=== PATIENT | female | born 1960 | race Caucasian/White ===

== ENCOUNTER 2018-06-27 23:49 | Observation (INO) | payer BC ==
[2018-06-27] MEDS ORDERED: Albuterol/Ipratropium NEB.SOL* Albuterol 2.5 MG/Ipratropium 0.5 MG 3 ML ONE (23:59)
[2018-06-28] MEDS ORDERED: Albuterol/Ipratropium NEB.SOL* Albuterol 2.5 MG/Ipratropium 0.5 MG 3 ML INH ONE ×2 (00:01→01:36)
[2018-06-28] MEDS ORDERED: Magnesium Sulfate 2 GM IV* 2 GM/50 ML BAG IVPB ONE (00:04)
[2018-06-28 00:33] LABS: ABS Basophils 0 10^3/ul (0-0.2); ABS Eosinophils 0.3 10^3/ul (0-0.6); ABS Lymphocytes 2.6 10^3/ul (1.0-4.8); ABS Monocytes 0.4 10^3/ul (0-0.8); ABS Neutrophils 3.4 10^3/ul (1.5-7.7); ABS Nucleated RBC 0 10^3/ul; Eosinophil % 3.8 % (0-6); Hematocrit 40 % (35-47); Hemoglobin 13.8 g/dl (12.0-16.0); Lymphocyte % 38.3 % (25-47); Mean Corpuscular HGB Conc 35 g/dl (31-36); Mean Corpuscular Hemoglobin 32 pg (27-31); Mean Corpuscular Volume 91 fL (80-97); Mean Platelet Volume 7.7 um3 (7.4-10.4); Nucleated Red Blood Cells % 0.2; Platelet Count 195 10^3/ul (150-450); Red Blood Count 4.36 10^6/ul (4.00-5.40); Red Cell Distribution Width 13 % (10.5-15); White Blood Count 6.7 10^3/ul (3.5-10.8)
[2018-06-28 00:41] LABS: EGFR Non-African American 91.4 (>60)
--- OUTSIDE RECORDS SUMMARY | 2018-06-28 00:42 | XMS REPORT ---
:1960 External Reference #:[id number] [facility] Address [address] [place] [address] [place] [address] Phone [phone] Care Team Providers Name Role Phone Emmett Torres MD Primary Care Physician Unavailable Payers Type Date Identification Numbers Payment Provider Subscriber Commercial Effective: Policy Number: BS Kelly YEYO Peters 2012 [id number] Expires: 2017 Group Number: [id number] [address] [address] PayID: [id number] YVETTE Flower [id number] Medigap Part B Effective: Policy Number: Maciej Silva 2017 [id number] Ppo Fran Group Number: [id number] [address] [address] PayID: [id number] YVETTE Gomez [id number] Problems Date Description Provider Status Onset: 02/16/2016 Catatonia Neema Lynne M.D. 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 Active Note: and subsequent anoxia resulting in admission to [facility] November 2015 [facility]: 02/10: ; 02/11: ; 02/12: Onset: 03/04/2017 Moderate persistent asthma Emmett Torres M.D.,FACP Active Onset: 03/04/2017 Anaphylaxis Emmett Torres M.D.,FACP Active Note: chocolate, soy, oranges Onset: 10/12/2017 Mixed hyperlipidemia Emmett Torres M.D.,FACP Active Family History Date Family Member(s) Problem(s) Comments : (age 77 Father due to Lung Cancer Years) Father Gout Father Hypertension Onset: (02/21/2017) Mother Hypertension (age 87 Years) Onset: (02/21/2017) Siblings 2 Siblings 2 1 - dec due to lung cancer 1 -has heart murmur First Brother Heart Murmur : (age 65 Second Brother due to Lung Cancer smoker Years) Social History Type Date Description Comments Marital Status Lives With Spouse Lives With Family Occupation Currently Working [employer] Breakfast Cigarette Use Former Cigarette Smoker ETOH Use Consumes 1 glass of wine per White wine with dinner day Smoking Patient is a former smoker Recreational Drug Use Denies Drug Use Daily Caffeine Consumes on average 1 cup of 1/2 regular and 1/2 decaf regular coffee per day Exercise Type/Frequency Exercises sporadically General Hx Text No kids Allergies, Adverse Reactions, Alerts Date Description Reaction Status Severity Comments 02/16/2016 Sulfa Antibiotics rash active Moderate to Severe 02/16/2016 Theophylline Palpitations, active Coughing 02/21/2017 chocolate active severe 02/21/2017 Soybean-containing active Drug Products 02/21/2017 orange active 03/04/2017 Shellfish-derived trouble breathing active Moderate to Products Severe Medications Medication Date Status Form Strength Qnty SIG Indications Ordering Provider Asmanex 06/07/ Active Aerosol 110mcg/Inh 1unit 1 Emmett Penahaljamar 2017 s inhalation Karlos Torres, Metered Doses in evening M.DKelli,FACP Azithromycin 06/07/ Hx Tablets 250mg 6tabs 2 every day Emmett 2018 - for 1 day, Karlos Torres, 06/12/ then 1 Avila,SATISH 2018 every day Sertraline HCL 06/17/ Active Tablets 100mg 90tab 1 by mouth F06.31 Neema 2017 s every day Avila Lynne Epipen 2-Gaurav 03/04/ Active Solution 0.3mg/0.3M 2unit use as Emmett Gonzalez Auto-Inject L jai Torres M.D.,FACP Albuterol / Active Nebulizer (2.5mg/3ML 1 vial via Unknown Sulfate 0000 ) 0.083% nebulizer 4 times daily as needed Proair HFA / Active Aerosol 108(90Base 2 puffs by Unknown 0000 ) mcg/Act mouth every 4 hours as needed Aleve / Active Capsules 220mg 2 by mouth Unknown 0000 twice a day as needed (rare) Fiber Select / Active Chewtabs 2 by mouth Unknown Gummies 0000 every day Amoxicillin/Cl 01/04/ Hx Tablets 875-125mg 14tab by mouth Emmett avulanate 2018 - s twice a day Karlos Torres, Potassium 01/11/ M.D.,FACP 2018 Tamiflu 12/22/ Hx Capsules 75mg 10cap 1 by mouth Emmett 2018 - s twice a day Karlos Torres, 01/04/ x 5 days M.D.,FACP 2018 Epipen 2-Gaurav 03/04/ Hx Solution 0.3mg/0.3M 2unit use as Emmett 2017 - Auto-Inject L s directed Karlos Torres, 03/04/ M.D.,FACP 2017 Sertraline HCL 02/07/ Hx Tablets 50mg 60tab 1 by mouth F06.31 Neema 2017 - s every day Maged, 06/17/ M.D. 2017 Symbicort / Hx 2 puffs po Unknown 0000 - prn 2015 Ibuprofen / Hx Capsules 200mg po as Unknown 0000 - needed 2015 Vital Signs Date Vital Result Comment 06/07/2018 Height 63 inches 5'3" Weight 127.00 lb Heart Rate 87 /min BP Systolic Sitting 138 mmHg BP Diastolic Sitting 80 mmHg Body Temperature 98.2 F O2 % BldC Oximetry 98 % BMI (Body Mass Index) 22.5 kg/m2 02/10/2018 Height 63 inches 5'3" Weight 128.00 lb Heart Rate 88 /min BP Systolic Sitting 118 mmHg BP Diastolic Sitting 68 mmHg Respiratory Rate 16 /min BMI (Body Mass Index) 22.7 kg/m2 01/04/2018 Weight 125.12 lb Heart Rate 76 /min BP Systolic Sitting 120 mmHg BP Diastolic Sitting 66 mmHg Body Temperature 98.2 F O2 % BldC Oximetry 98 % 10/12/2017 Height 62.75 inches 5'2.75" Weight 121.25 lb Heart Rate 60 /min BP Systolic Sitting 130 mmHg LA reg cuff BP Diastolic Sitting 78 mmHg LA reg cuff BMI (Body Mass Index) 21.6 kg/m2 Ejection Fraction 55%-60% echo 03/24/17 06/17/2017 Height 62.75 inches 5'2.75" Weight 121.00 lb Heart Rate 62 /min BP Systolic Sitting 122 mmHg BP Diastolic Sitting 78 mmHg Respiratory Rate 12 /min BMI (Body Mass Index) 21.6 kg/m2 05/19/2017 Height 62.75 inches 5'2.75" Weight 121.00 lb Heart Rate 76 /min BP Systolic Sitting 122 mmHg LA, reg BP Diastolic Sitting 74 mmHg LA, reg BMI (Body Mass Index) 21.6 kg/m2 Ejection Fraction 55% - 60% 03/04/2017 Height 62.75 inches 5'2.75" Weight 120.50 lb Heart Rate 72 /min BP Systolic Sitting 122 mmHg BP Diastolic Sitting 76 mmHg Body Temperature 97.4 F O2 % BldC Oximetry 96 % BMI (Body Mass Index) 21.5 kg/m2 02/21/2017 Height 63 inches 5'3" Weight 122.75 lb with shoes Heart Rate 72 /min BP Systolic Sitting 122 mmHg LA reg cuff BP Diastolic Sitting 82 mmHg LA reg cuff BMI (Body Mass Index) 21.7 kg/m2 02/07/2017 Height 63 inches 5'3" Weight 125.00 lb Heart Rate 64 /min BP Systolic Sitting 106 mmHg BP Diastolic Sitting 60 mmHg Respiratory Rate 14 /min BMI (Body Mass Index) 22.1 kg/m2 08/04/2016 Height 63 inches 5'3" Weight 118.00 lb Heart Rate 68 /min BP Systolic Sitting 120 mmHg BP Diastolic Sitting 80 mmHg Respiratory Rate 14 /min BMI (Body Mass Index) 20.9 kg/m2 05/13/2016 Height 63 inches 5'3" Weight 123.00 lb Heart Rate 68 /min BP Systolic Sitting 110 mmHg BP Diastolic Sitting 70 mmHg Respiratory Rate 17 /min BMI (Body Mass Index) 21.8 kg/m2 02/16/2016 Height 63 inches 5'3" Weight 123.00 lb Heart Rate 88 /min BP Systolic Sitting 116 mmHg BP Diastolic Sitting 82 mmHg Respiratory Rate 16 /min BMI (Body Mass Index) 21.8 kg/m2 Results Test Date Test Result H/L Range Note Sputum Culture & 06/07/2018 Sputum Culture SEE RESULT BELOW 1 Sensitiv Gram Stain Laboratory test 06/07/2018 Sputum Smear <pending> finding Laboratory test 03/16/2018 Magnesium 2.0 mg/dL 1.9-2.7 2, 3 finding Basic Metabolic Panel 03/16/2018 Sodium 141 mmol/L 139-145 2 Potassium 4.4 mmol/L 3.5-5.0 2 Chloride 107 mmol/L 101-111 2 Co2 Carbon Dioxide 29 mmol/L 22-32 2 Anion Gap 5 mmol/L 2-11 2 Glucose 84 mg/dL 70-100 2 Blood Urea Nitrogen 14 mg/dL 6-24 2 Creatinine 0.60 mg/dL 0.51-0.95 2 BUN/Creatinine Ratio 23.3 High 8-20 2 Calcium 9.2 mg/dL 8.6-10.3 2 Egfr Non- 102.3 >60 2 Egfr 131.6 >60 2, 4 Laboratory test 03/16/2018 Erythrocyte Sed Rate 11 mm/Hr 0-30 finding Laboratory test 02/22/2018 Clotest SEE RESULT BELOW 5 finding Laboratory test 02/22/2018 Surgical Interface SEE RESULT BELOW 6 finding Order Laboratory test 10/12/2017 Magnesium 1.9 mg/dL 1.9-2.7 finding Basic Metabolic Panel 10/12/2017 Sodium 139 mmol/L 133-145 Potassium 4.4 mmol/L 3.5-5.0 Chloride 105 mmol/L 101-111 Co2 Carbon Dioxide 26 mmol/L 22-32 Anion Gap 8 mmol/L 2-11 Glucose 95 mg/dL 70-100 Blood Urea Nitrogen 15 mg/dL 6-24 Creatinine 0.62 mg/dL 0.51-0.95 BUN/Creatinine Ratio 24.2 High 8-20 Calcium 9.2 mg/dL 8.6-10.3 Egfr Non- 98.5 >60 Egfr 126.7 >60 7 Lipid Profile (Trig/Chol/HDL) 10/12/2017 Triglycerides 59 mg/dL 8 Cholesterol 242 mg/dL 9 HDL Cholesterol 66.0 mg/dL 10 LDL Cholesterol 164 mg/dL 11 Lipid Panel - [facility] 03/08/2017 Creatine Kinase(CK) 50 U/L 10-223 12 Comp Metabolic Panel 03/08/2017 Sodium 140 mmol/L 133-145 Potassium 4.4 mmol/L 3.5-5.0 Chloride 106 mmol/L 101-111 Co2 Carbon Dioxide 29 mmol/L 22-32 Anion Gap 5 mmol/L 2-11 Glucose 82 mg/dL 70-100 Blood Urea Nitrogen 11 mg/dL 6-24 Creatinine 0.65 mg/dL 0.51-0.95 BUN/Creatinine Ratio 16.9 8-20 Calcium 9.1 mg/dL 8.6-10.3 Total Protein 6.7 g/dL 6.4-8.9 Albumin 4.4 g/dL 3.2-5.2 Globulin 2.3 g/dL 2-4 Albumin/Globulin Ratio 1.9 1-3 Total Bilirubin 0.60 mg/dL 0.2-1.0 Alkaline Phosphatase 53 U/L 34-104 Alt 18 U/L 7-52 Ast 18 U/L 13-39 Egfr Non- 93.6 >60 Egfr 120.4 >60 13 Lipid Profile (Trig/Chol/HDL) 03/08/2017 Triglycerides 71 mg/dL 14 Cholesterol 228 mg/dL 15 HDL Cholesterol 52.6 mg/dL 16 LDL Cholesterol 161 mg/dL 17 Laboratory test finding 03/08/2017 TSH (Thyroid Stim 1.42 mcIU/mL 0.34- 5.60 18 Horm) CBC Auto Diff 03/08/2017 White Blood Count 3.8 10^3/uL 3.5-10.8 Red Blood Count 4.70 10^6/uL 4.0-5.4 Hemoglobin 14.2 g/dL 12.0-16.0 Hematocrit 42 % 35-47 Mean Corpuscular Volume 90 fL 80-97 Mean Corpuscular Hemoglobin 30 pg 27-31 Mean Corpuscular HGB Conc 34 g/dL 31-36 Red Cell Distribution Width 12 % 10.5-15 Platelet Count 203 10^3/uL 150-450 Mean Platelet Volume 8 um3 7.4-10.4 Abs Neutrophils 1.9 10^3/uL 1.5-7.7 Abs Lymphocytes 1.5 10^3/uL 1.0-4.8 Abs Monocytes 0.2 10^3/uL 0-0.8 Abs Eosinophils 0.1 10^3/uL 0-0.6 Abs Basophils 0 10^3/uL 0-0.2 Abs Nucleated RBC 0 10^3/uL Granulocyte % 50.8 % 38-83 Lymphocyte % 40.0 % 25-47 Monocyte % 6.3 % 1-9 Eosinophil % 2.3 % 0-6 Basophil % 0.6 % 0-2 Nucleated Red Blood Cells % 0.1 Laboratory test finding 03/08/2017 Magnesium 2.0 mg/dL 1.9-2.7 19 Erythrocyte Sed Rate 10 mm/Hr 0-30 20 C Reactive Protein < 1.00 mg/L < 5.00 21 Aldosterone 17 ng/dL <=21 22 Hemoglobin A1c (Glyco HGB) 5.2 % Less than 6.0 23 Laboratory test finding 03/08/2017 Hepatitis C Antibody Nonreactive Nonreactive 24 1 SEE RESULT BELOW Name: EFRAÍN PETERS : [address]: Adrianne Torres MD Acct: [id number] Unit: [id number] AGE: 58 Location: [facility] Re06/07/18 SEX: F Status: REG REF SPEC: [id number] SRAVANI: 06/07/18-[address]: Emmett Torres MD REQ: [id number] RECD: 06/07/18 STATUS: COMP _ SOURCE: SPUTUM SPDESC: ORDERED: Sputum Cult/GS COMMENTS: [id number] Procedure Result Reported Site Sputum Smear Final 06/08/18- 0742 ML 2+ Nucleated Cells 2+ Neutrophils 2+ Epithelial Cells Mixed Morphotypes, resembling Normal Lupillo Sputum Culture Final 06/09/18- 954 ML Organism 1 NORMAL LUPILLO Quantity 3+ * ML - Main Lab . END OF REPORT DEPARTMENT OF PATHOLOGY, [address] [place] [address] Andrew Shankar M.D. Director [facility] # [id number] 2 FASTING 3 FASTING 4 Because ethnic data is not always readily available, this report includes an eGFR for both -Americans and non- Americans. The National Kidney Disease Education Program (NKDEP) does not endorse the use of the MDRD equation for patients that are not between the ages of 18 and 70, are , have extremes of body size, muscle mass, or nutritional status, or are non- or non-. According to the National Kidney Foundation, irrespective of diagnosis, the stage of the disease is based on the level of kidney function: Stage Description GFR(mL/min/1.73 m(2)) 1 Kidney damage with normal or decreased GFR 90 2 Kidney damage with mild decrease in GFR 60-89 3 Moderate decrease in GFR 30-59 4 Severe decrease in GFR 15-29 5 Kidney failure <15 (or dialysis) 5 SEE RESULT BELOW Name: EFRAÍN PETERS : [address]: Yolanda Salguero DO Acct: [id number] Unit: [id number] AGE: 57 Location: ENDO Re02/22/18 SEX: F Status: REG REF SPEC: [id number] SRAVANI: 02/22/18-[address] [facility] [address]: Yolanda Salguero DO REQ: [id number] RECD: 02/22/18-1535 STATUS: OTF EVERET[facility] DR: Emmett Lynne MD _ SOURCE: GAS ANTRUM SPDESC: ORDERED: Clotest Procedure Result Reported Site Clotest Final 02/22/182056 ML Clotest Negative * ML - Main Lab . END OF REPORT DEPARTMENT OF PATHOLOGY, [address] [place] [address] Andrew Shankar M.D. Director [facility] # [id number] 6 SEE RESULT BELOW Name: EFRAÍN PETERS : [address]: Yolanda Salguero DO Acct: [id number] Unit: [id number] AGE: 57 Location: ENDO Re02/22/18 SEX: F Status: DEP REF SPEC: [id number] SRAVANI: 02/22/18- SUBM DR: Yolanda FRANCE: [id number] RECD: 02/22/18-1523 STATUS: NIEVES EVERETT DR: Emmett Torres MD _ ORDERED: LEVEL 4/3 FINAL DIAGNOSIS 1. Esophagus, distal, biopsy: -- Squamous and columnar mucosa with chronic inflammation. -- Intestinal metaplasia is absent. -- Dysplasia is absent. 2. Esophagus, mid, biopsy: -- Benign squamous mucosa with mild erosive changes. -- No evidence of eosinophilic esophagitis. 3. Colon, ascending, biopsy: -- Tubular adenoma. -- No high grade dysplasia or malignancy. CLINICAL HISTORY Dysphagia, gastroesophageal reflux disease, history of polyps POST-OPERATIVE DIAGNOSIS EGD: Mild distal esophagitis, biopsied; normal mid esophagus, biopsied to rule out eosinophilic esophagitis; antral gastritis, CLOtest; normal duodenum. Colon: 6 mm ascending colon polyp; internal hemorrhoids. Conclusions/Plan: Omeprazole 40 mg every AM for 3 months; colonoscopy 5 years GROSS DESCRIPTION 1. The specimen is received in formalin labeled, Distal Esophagus Biopsies , and consists of two alvarado-pink irregular soft tissue fragments measuring 0.3 x 0.2 x 0.2 cm and 0.7 by up to 0.2 x 0.1 cm which are submitted entirely in one cassette. 2. The specimen is received in formalin labeled, Mid Esophagus Biopsy, and consists of a 0.6 by up to 0.3 x 0.1 cm alvarado-pink irregular soft tissue fragment which is submitted CONTINUED ON NEXT PAGE DEPARTMENT OF PATHOLOGY, [address] [place] [address] Andrew Shankar M.D. Director [facility] # [id number] RUN DATE: 02/23/18 [facility] LAB LIVE PAGE 2 Patient: EFRAÍN PETERS [id number] (Continued) GROSS DESCRIPTION (Continued) GROSS DESCRIPTION (Continued) entirely in one cassette. 3. The specimen is received in formalin labeled, Ascending Colon Polyp, and consists of a 0.4 x 0.3 x 0.1 cm aggregate of alvarado-pink irregular soft tissue fragments which is submitted entirely in one cassette. Signed (signature on file) Hayley Davis MD [id number] END OF REPORT DEPARTMENT OF PATHOLOGY, [address] [place] [address] Andrew Shankar M.D. Director [facility] # [id number] 7 Because ethnic data is not always readily available, this report includes an eGFR for both -Americans and non- Americans. The National Kidney Disease Education Program (NKDEP) does not endorse the use of the MDRD equation for patients that are not between the ages of 18 and 70, are , have extremes of body size, muscle mass, or nutritional status, or are non- or non-. According to the National Kidney Foundation, irrespective of diagnosis, the stage of the disease is based on the level of kidney function: Stage Description GFR(mL/min/1.73 m(2)) 1 Kidney damage with normal or decreased GFR 90 2 Kidney damage with mild decrease in GFR 60-89 3 Moderate decrease in GFR 30-59 4 Severe decrease in GFR 15-29 5 Kidney failure <15 (or dialysis) 8 Desirable: <150 Borderline High: 150-199 High: 200-499 Very High: >500 9 Desirable: <200 Borderline High: 200-239 High: >239 10 Low: <40 Desirable: 40-60 High: >60 11 Desirable: <100 Near Optimal: 100-129 Borderline High: 130-159 High: 160-189 Very High: >189 [address] pmd [address] Jonathan Torres 13 Because ethnic data is not always readily available, this report includes an eGFR for both -Americans and non- Americans. The National Kidney Disease Education Program (NKDEP) does not endorse the use of the MDRD equation for patients that are not between the ages of 18 and 70, are , have extremes of body size, muscle mass, or nutritional status, or are non- or non-. According to the National Kidney Foundation, irrespective of diagnosis, the stage of the disease is based on the level of kidney function: Stage Description GFR(mL/min/1.73 m(2)) 1 Kidney damage with normal or decreased GFR 90 2 Kidney damage with mild decrease in GFR 60-89 3 Moderate decrease in GFR 30-59 4 Severe decrease in GFR 15-29 5 Kidney failure <15 (or dialysis) 14 Desirable <150 Borderline high 150-199 High 200-499 Very High >500 15 Desirable <200 Borderline high 200-239 High >239 16 Low <40 Desirable: 40-60 High: >60 17 Desirable: <100 mg/dL Near Optimal: 100-129 mg/dL Borderline High: 130-159 mg/dL High: 160-189 mg/dL Very High: >189 mg/dL [address] Jonathan Torres [address] Jonathan Torres [address] Jonathan Torres 21 Acute inflammation: >10.00 22 ADDITIONAL INFORMATION Reference range for patients 11 years and older is based on upright A.M. collection from subjects without sodium restrictions. This test was developed and its performance characteristics determined by [facility] in a manner consistent with CLIA requirements. This test has not been cleared or approved by the U.S. Food and Drug Administration. Test Performed by: [address] [address] 23 Therapeutic target for the treatment of diabetes Mellitus patients is <7% HBA1C, and in selective patients <6.0%.Please refer to [place] [employer] Diabetic care guidelines for further information. [address] Jonathan Torres Procedures Date CPT Code Description Status 02/22/2018 15701 Colonoscopy Flexible Remove Tumor/Polyp/Lesion Snare Completed Technique 02/22/2018 15239 Endoscopy Upper GI Biopsy Completed 02/22/2018 Colonoscopy Completed 10/12/2017 75241 EKG Tracing & Interpretation Completed 04/22/2017 57268 Treadmill Interp/Report Only Completed 04/22/2017 83713 Stress Test Supervsn W/Out I/R Completed 04/06/2017 Mammogram Completed 03/24/2017 98116 ECHO Transthoracic, Real-Time 2D With Doppler And Color Completed Flow 02/24/2017 88494 Event Monitor/Phys Review/Interp. Completed 02/21/2017 15216 EKG Tracing & Interpretation Completed 02/16/2017 17925 Holter Monitor Review (24 hr)dr review & interp only Completed 12/23/2015 77128 EEG Recording Awake & Drowsy Completed 12/21/2015 95789 EEG Recording Awake & Asleep Completed 12/21/2015 54201 EKG, Interpretation Only Completed 12/27/2012 Colonoscopy Completed 11/15/2012 Mammogram Completed Encounters Type Date Location Provider CPT E/M Dx Office Visit 02/10/2018 [facility] Neema Lynne M.D. 16832 G93.1 2:45p [facility] F06.1 G31.84 Office Visit 01/04/2018 9:40a [facility] Emmett Torres, [address] Avila,FACP Office Visit 10/12/2017 2:30p [facility] Aristides Jeong, 72469 G93.1 Avila I34.0 R00.2 R42 R25.2 Office Visit 06/17/2017 1:30p [facility] Neema Lynne M.D. 30210 G93.1 [facility] F06.31 F06.1 Office Visit 05/19/2017 2:30p [facility] NANCY Castro 09979 R42 R00.2 I34.0 E78.5 Office Visit 03/04/2017 11:00a [facility] Internal Emmett Torres, 15507 Z00.00 Medicine - [address] Avila,FACP Z11.59 Z12.31 T78.00xD M77.11 Office Visit 02/21/2017 3:00p [facility] Aristides Jeong M.D. 11509 G93.1 F06.31 T78.00xA R07.9 R00.2 R42 Office Visit 02/07/2017 11:30a [facility] Neema Lynne M.D. 98999 G93.1 [facility] F06.1 F80.1 Z87.820 F06.31 R00.2 Office Visit 08/04/2016 10:00a [facility] Neema Lynne M.D. 82341 Z87.820 [facility] F80.1 R51 G93.1 Office Visit 05/13/2016 10:30a [facility] Neema Lynne, 35569 F06.1 Avila Z87.820 R51 Office Visit 02/16/2016 10:30a [facility] Neema Lynne, 17008 F06.1 Avila Z87.820 [facility] 43132 T78.00[facility] Avila G40.A09 J68.3 F20.2 Office Visit 12/25/2015 9:51a [facility] Demetrio Anthony, 67017 T78.00xA [facility] Avila G40.A09 J68.3 F20.2 Office Visit 12/25/2015 10:31a [facility] Neema Lynne, 03826 F20.2 MMaricruz Z87.820 Office Visit 12/24/2015 10:29a [facility] Neema Lynne, 25675 F20.2 M.DKelli Z87.820 Office Visit 12/24/2015 9:51a [facility] Demetrio Anthony, 50677 T78.00xA Assoc, Hospital[facility] Avila G40.A09 J68.3 F20.2 Office Visit 12/23/2015 9:59a [facility] Neema Lynne, 98851 F20.2 M.DKelli Z87.820 Office Visit 12/23/2015 9:50a [facility] Raj, 28650 T78.00xA [facility]oc, Hospitalists Avila G40.A09 J68.3 F20.2 Office Visit 12/22/2015 9:57a [facility] Neema Lynne, 93070 F20.2 M.DKelli Office Visit 12/22/2015 9:49a [facility], Demetrio Anthony, 94681 T78.00xA Hospitalists Avila F20.2 Office Visit 12/21/2015 9:54a [facility] Neema Lynne, 86754 T78.00xA M.Karlos E27.40 Office Visit 12/21/2015 9:48a [facility] Emmett Torres, 90674 T78.00xA [facility]oc, Hospital[facility] Avila,FACP J68.3 G40.A09 F20.2 Plan of Care 06/07/2018 - Emmett Torres M.D.,FACPJ45.41 Moderate persistent asthma with (acute) exacerbationComments:Take Asmanex 1 inhalation daily to prevent asthma symptoms, take this for at least a month. You can continue using a rescue inhaler as needed. Complete sputum sample prior to starting antibiotic. Bringthis to the lab for testing. Prescribed Azithromycin due to ongoing symptoms.
--- NOTE | 2018-06-28 00:46 | ED ---
Respiratory - HPI Summary HPI Summary: This is cyndylogan Mohan Feliz documenting for attending Anup Sharp MD. This patient is a 58 year old F BIBA to [facility] in respiratory distress due to a severe asthma attack. The patient arrived by EMS on a non rebreather mask and was given 3 albuterol neb, 2 antivert, and 10 mg of dexamethasone. LEVEL 5 CAVEAT: Exam limited due to patients limited ability to speak due to mask and respiratory distress. - History of Current Complaint Stated Complaint: SOB Time Seen by Provider: 06/27/18 23:50 Hx Obtained From: EMS Onset/Duration: Lasting Hours, Still Present Initial Severity: Severe Current Severity: Severe Pain Intensity: 0 Character: Wheezing Sputum Amount: None Associated Signs and Symptoms: Negative - fever - Allergy/Home Medications Allergies/Adverse Reactions: Allergies Allergy/AdvReac Type Severity Reaction Status Date / Time MS Chocolate [Chocolate] Allergy Severe Difficulty Verified 03/09/18 10:46 Breathing MS Soy Allergy [Soy Allergy] Allergy Severe Difficulty Verified 03/09/18 10:46 Breathing MS Theophylline Allergy Severe Difficulty Verified 03/09/18 10:46 [Theophylline] Breathing MS Sulfa Drugs [Sulfa Drugs] Allergy Intermediate Rash And Verified 03/09/18 10: 46 Itching MS Onion [Onion] Allergy Mild Difficulty Verified 03/09/18 10:46 Breathing shellfish derived Allergy Difficulty Verified 03/09/18 10:46 Breathing orange Allergy Severe Difficulty Uncoded 03/09/18 10:46 Breathing PMH/Surg Hx/FS Hx/Imm Hx Endocrine/Hematology History: Denies: Hx Diabetes, Hx Thyroid Disease Cardiovascular History: Denies: Hx Hypertension, Hx Pacemaker/ICD Respiratory History: Reports: Hx Asthma, Other Respiratory Problems/Disorders - Hx pneumonia Denies: Hx Chronic Obstructive Pulmonary Disease (COPD) GI History: Reports: Other GI Disorders - portion of small bowel removed Dec 2012 Denies: Hx Ulcer History: Denies: Hx Dialysis, Hx Renal Disease Musculoskeletal History: Reports: Other Musculoskeletal History - Tib/fib R ankle fx 1990, felecia inserted, head injury 1974 Sensory History: Reports: Hx Contacts or Glasses Denies: Hx Hearing Aid Opthamlomology History: Reports: Hx Contacts or Glasses Neurological History: Reports: Hx Migraine, Other Neuro Impairments/Disorders - Hx head injury 1974, followed by Dr. 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 2 D&C. WISDOM TEETH Infectious Disease History: No Infectious Disease History: Denies: Hx Hepatitis, Hx Human Immunodeficiency Virus (HIV), Traveled Outside the [place] in Last 30 Days - Family History Known Family History: Positive: Diabetes Negative: Respiratory Disease, Seizure Disorder, Blood Disorder - Social History Alcohol Use: Daily Alcohol Amount: 'a couple glasses of wine per day' Substance Use Type: Reports: None Smoking Status (MU): Former Smoker Review of Systems - ROS Summary Review of Systems Summary: LEVEL 5 CAVEAT: Exam limited due to patients limited ability to speak due to mask and respiratory distress. Negative: Fever Positive: Shortness Of Breath Positive: Anxious All Other Systems Reviewed And Are Negative: No Physical Exam - Summary Physical Exam Summary: Appearance: Well appearing, no pain distress. Mild respiratory distress Skin: warm, dry, reflects adequate perfusion Head/face: normal Eyes: EOMI, CYNDI ENT: normal Neck: supple, non-tender Respiratory: occasional wheeze in bilateral bases Cardiovascular: tachycardic, pulses symmetrical Abdomen: non-tender, soft Bowel: present Musculoskeletal: normal, strength/ROM intact Neuro: normal, sensory motor intact, A&Ox3 Triage Information Reviewed: Yes Vital Signs On Initial Exam: Initial Vitals Temp Pulse Resp BP Pulse Ox 99.2 F 86 21 142/84 140 06/27/18 23:54 06/27/18 23:54 06/27/18 23:54 06/27/18 23:54 06/27/18 23:54 Vital Signs Reviewed: Yes Diagnostics - Vital Signs Vital Signs Temp Pulse Resp BP Pulse Ox 06/28/18 00:14 85 16 98 06/27/18 23:54 99.2 F 86 21 142/84 140 - Laboratory Lab Results: Lab Results 06/28/18 06/28/18 06/28/18 Range/Units 00:10 00:11 00:11 WBC 6.7 (3.5-10.8) 10^3/ul RBC 4.36 (4.00-5.40) 10^6/ul Hgb 13.8 (12.0-16.0) g/dl Hct 40 (35-47) % MCV 91 (80-97) fL MCH 32 H (27-31) pg MCHC 35 (31-36) g/dl RDW 13 (10.5-15) % Plt Count 195 (150-450) 10^3/ul MPV 7.7 (7.4-10.4) um3 Neut % (Auto) 51.2 (38-83) % Lymph % (Auto) 38.3 (25-47) % [place] % (Auto) 6.2 (0-7) % Eos % (Auto) 3.8 (0-6) % Baso % (Auto) 0.5 (0-2) % Absolute Neuts (auto) 3.4 (1.5-7.7) 10^3/ul Absolute Lymphs (auto) 2.6 (1.0-4.8) 10^3/ul Absolute Monos (auto) 0.4 (0-0.8) 10^3/ul Absolute Eos (auto) 0.3 (0-0.6) 10^3/ul Absolute Basos (auto) 0 (0-0.2) 10^3/ul Absolute Nucleated RBC 0 10^3/ul Nucleated RBC % 0.2 ABG pH 7.31 L (7.35-7.45) ABG pCO2 45 (35-45) mmHg ABG pO2 318 H (80-100) mmHg ABG HCO3 22.0 (19-31) mmol/L ABG O2 Saturation 99.4 H (95-98) % ABG Base Excess -3.7 L (-2.0-2.0) Sodium 144 (135-145) mmol/L Potassium Pending Chloride 111 (101-111) mmol/L Carbon Dioxide 21 L (22-32) mmol/L Anion Gap Pending BUN 17 (6-24) mg/dL Creatinine 0.66 (0.51-0.95) mg/dL Est GFR ( Amer) 110.5 (>60) Est GFR (Non-Af Amer) 91.4 (>60) BUN/Creatinine Ratio 25.8 H (8-20) Glucose 103 H (70-100) mg/dL Lactic Acid (0.5-2.0) mmol/L Calcium 9.3 (8.6-10.3) mg/dL Total Bilirubin 0.30 (0.2-1.0) mg/dL AST Pending ALT 17 (7-52) U/L Alkaline Phosphatase 69 (34-104) U/L Troponin I 0.00 (<0.04) ng/mL Total Protein 7.0 (6.4-8.9) g/dL Albumin 4.4 (3.2-5.2) g/dL Globulin 2.6 (2-4) g/dL Albumin/Globulin Ratio 1.7 (1-3) 06/28/18 Range/Units 00:12 WBC (3.5-10.8) 10^3/ul RBC (4.00-5.40) 10^6/ul Hgb (12.0-16.0) g/dl Hct (35-47) % MCV (80-97) fL MCH (27-31) pg MCHC (31-36) g/dl RDW (10.5-15) % Plt Count (150-450) 10^3/ul MPV (7.4-10.4) um3 Neut % (Auto) (38-83) % Lymph % (Auto) (25-47) % [place] % (Auto) (0-7) % Eos % (Auto) (0-6) % Baso % (Auto) (0-2) % Absolute Neuts (auto) (1.5-7.7) 10^3/ul Absolute Lymphs (auto) (1.0-4.8) 10^3/ul Absolute Monos (auto) (0-0.8) 10^3/ul Absolute Eos (auto) (0-0.6) 10^3/ul Absolute Basos (auto) (0-0.2) 10^3/ul Absolute Nucleated RBC 10^3/ul Nucleated RBC % ABG pH (7.35-7.45) ABG pCO2 (35-45) mmHg ABG pO2 (80-100) mmHg ABG HCO3 (19-31) mmol/L ABG O2 Saturation (95-98) % ABG Base Excess (-2.0-2.0) Sodium (135-145) mmol/L Potassium Chloride (101-111) mmol/L Carbon Dioxide (22-32) mmol/L Anion Gap BUN (6-24) mg/dL Creatinine (0.51-0.95) mg/dL Est GFR ( Amer) (>60) Est GFR (Non-Af Amer) (>60) BUN/Creatinine Ratio (8-20) Glucose (70-100) mg/dL Lactic Acid 1.9 (0.5-2.0) mmol/L Calcium (8.6-10.3) mg/dL Total Bilirubin (0.2-1.0) mg/dL AST ALT (7-52) U/L Alkaline Phosphatase (34-104) U/L Troponin I (<0.04) ng/mL Total Protein (6.4-8.9) g/dL Albumin (3.2-5.2) g/dL Globulin (2-4) g/dL Albumin/Globulin Ratio (1-3) Result Diagrams: 06/28/18 00:11 06/28/18 00:11 Lab Statement: Any lab studies that have been ordered have been reviewed, and results considered in the medical decision making process. - Radiology CXR Radiology Interpretation Completed By: ED Physician - no acute disease.pending official report. - EKG 0004 Cardiac Rate: NL EKG Rhythm: Sinus Rhythm - at 87 BPM EKG Interpretation: no acute changes Disposition - Course Assessment/Plan: This patient is a 58 year old F BIBA to [facility] in respiratory distress due to a severe asthma attack. The patient arrived by EMS on a non rebreather mask and was given 3 albuterol neb, 2 antivert, and 10 mg of dexamethasone. LEVEL 5 CAVEAT: Exam limited due to patients limited ability to speak due to mask and respiratory distress. An EKG reveals NSR. CXR reveals , no acute disease pending official report. Blood work obtained. We discussed patient care with Dr. Boston and she accepted the patient for admission. Patient will be admitted. The patient is agreeable with this plan. - Diagnoses Provider Diagnoses: Status asthmaticus - Physician Notifications Discussed Care Of Patient With: Harini Boston Time Discussed With Above Provider: 01:15 Instructed by Provider To: Admit As Observation - Critical Care Time Critical Care Time: 30-74 min Discharge - Sign-Out/Discharge Documenting (check all that apply): Patient Departure - admitted - Discharge Plan Condition: Fair Disposition: ADMITTED TO [facility] Referrals: Emmett Torres MD [Primary Care Provider] - - Billing Disposition and Condition Condition: FAIR Disposition: Admitted to [facility]
[2018-06-28] MEDS ORDERED: Albuterol/Ipratropium NEB.SOL* Albuterol 2.5 MG/Ipratropium 0.5 MG 3 ML ONE (01:35)
[2018-06-28] MEDS ORDERED: Al Hydrox/Mg Hydrox/Simet LIQ* 30 ML UDC PO PRN (01:58)
[2018-06-28] MEDS ORDERED: Ondansetron INJ* 2 MG/ML VIAL IV PRN (01:58)
[2018-06-28] MEDS ORDERED: methylPREDNISolone 125 MG* 2 ML VIAL IV ONE (02:01)
[2018-06-28] MEDS ORDERED: Albuterol 2.5 MG/3 ML NEB.SOL* (0.083%) INH PRN (02:02)
[2018-06-28] MEDS ORDERED: Albuterol/Ipratropium NEB.SOL* Albuterol 2.5 MG/Ipratropium 0.5 MG 3 ML INH PRN (02:02)
[2018-06-28] MEDS ORDERED: Benzonatate CAP* 100 MG PO PRN (02:05)
[2018-06-28] MEDS ORDERED: Thiamine IV* 100 MG/ML 2 ML VIAL IM ONE (02:08)
[2018-06-28] MEDS ORDERED: LORazepam TAB(*) 1 MG PO SCH (03:00)
[2018-06-28] MEDS: NS 0.9% 1000 ML* 1,000 ML IV SCH ×2 (03:24→11:41)
--- NOTE | 2018-06-28 05:22 | HP ---
CC: Emmett Torres MD * HISTORY AND PHYSICAL: DATE OF ADMISSION: 06/28/18 TIME OF EVALUATION: 0200. PRIMARY CARE PHYSICIAN: Emmett Torres MD CHIEF COMPLAINT: Shortness of breath. 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 The patient and the brother provided the history together. The patient states she has been coughing more over the past few days. She states that during the month of April she took 3 consecutive Z-Paks and finally got better after her third round of Z-Gaurav. This evening, she went out with her friend and her mother to dinner. She was came home getting ready for bed when she came down acutely short of breath, coughing. She had a syncopal episode which she normally does when she has her asthma attacks. Her brother grabbed the Asmanex inhaler, tried to give her treatment and she continued with labored breathing, syncopized again, at that time, he called 911 and she was brought in on a CPAP. The patient states she has had a productive cough over the past few days. No fevers or chills. Mild chest pain yesterday. She had some diarrhea. She has been using her inhalers as prescribed with no issues. She denies any recent travel. She states her last major asthma attack episode was back in November. In the emergency room, the patient was given DuoNeb, magnesium, and was weaned down to 2 L of the CPAP. She is still complaining of shortness of breath but states it has improved since her arrival. The patient was referred to the hospitalist service for further evaluation. PAST MEDICAL HISTORY: 1. Asthma. 2. History of traumatic brain injury. MEDICATIONS: 1. Zoloft 100 mg p.o. daily. 2. Psyllium p.o. daily. 3. Naproxen 220 mg p.o. daily as needed. 4. Flonase to both nares daily. 5. Albuterol nebulizer q.4 hours as needed. 6. The patient also states she takes Asmanex as well. ALLERGIES: CHOCOLATE, SOY, THEOPHYLLINE, SULFA, ONION, SHELLFISH, ORANGE. FAMILY HISTORY: Brother from pancreatic cancer at age 65. Father from mesothelioma. Her mother is alive with diabetes. CODE STATUS: Full code. SOCIAL HISTORY: She lives at home with her , Magen, who is out of town currently. He is her healthcare proxy. 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 She admits to 2 glasses of wine a night. REVIEW OF SYSTEMS: A 14-point review of systems as mentioned in the HPI, otherwise negative. PHYSICAL EXAMINATION GENERAL: No acute distress. Her brother is sitting at the bedside. VITAL SIGNS: Temp 99.2, pulse rate 96, respiratory rate 23, oxygen saturation 100% on 2 L, blood pressure 121/69. HEENT: Head: Normocephalic. Pupils are equal and reactive. Anicteric. Oropharynx: Mucous membranes are moist. NECK: Supple. No lymphadenopathy. RESPIRATORY: Poor aeration. No wheezes, rhonchi or rales. No tachypnea or increased work of breathing. CARDIAC: Regular rate and rhythm. Soft systolic murmur heard throughout. ABDOMEN: Soft, nontender, nondistended. EXTREMITIES: No clubbing, cyanosis, or edema. NEUROLOGICAL: Alert and oriented x3. No gross focal neurologic deficits. The patient does appear to be delayed in her speech processing with answering questions but she does answers appropriately. LABORATORY DATA: White count 6.7, hemoglobin 13.8, hematocrit 40, platelets 195. Blood gas 7.31, pCO2 45, pO2 318. Sodium 144, chloride 111, bicarb 21, BUN 17, creatinine 0.66, glucose 103. Troponin is 0. RADIOGRAPHIC DATA: EKG shows normal sinus rhythm. Chest x-ray on wet read is unremarkable. ASSESSMENT: This is a 58-year-old female with a past medical history of asthma , who presented to the emergency room with acute onset of shortness of breath. 1. Shortness of breath. Assessment: The patient's clinical presentation has improved. Findings are suspicious for an asthma exacerbation. She has poor aeration and air movement on exam but no evidence of wheezing or increased work of breathing and has titrated rather quickly down to 2 L. The syncope is concerning but I wonder if this is some sort of vasovagal event with her coughing episodes. Her EKG and troponin are negative. Plan: We will admit her to telemetry, continue treating for asthma exacerbation including giving her Solu-Medrol and prednisone for the morning, DuoNebs, albuterol. Continue Asmanex, incentive spirometer, and repeat her troponin. Consider echo if any further workup is unremarkable. The patient should followup with outpatient Pulmonology as well. 2. Alcohol use. The patient states she drinks 2 glasses of wine. It appears that in her past, this has been an issue. Plan: We will check an alcohol level and urine drug screen to see this may have contributed to her presentation and place her on a WA protocol as well. 3. FEN. Regular diet. IV fluids. 4. DVT prophylaxis. The patient scores moderate risk. We will place her on heparin subcu t.i.d. 5. Code status. Full code. PATIENT TIME: Greater than 45 minutes were spent doing the history and physical , more than half of the time was spent in direct patient contact. [id number]/[facility] #: [id number] ABDIRAHMAN
[2018-06-28] MEDS: Heparin VIAL(*) 5000 UNITS/ML VIAL (FIVE THOUSAND) SUBCUT SCH ×3 (06:16→21:49)
[2018-06-28] MEDS: Mometasone 220 MCG MDI INH SCH ×2 (07:38→20:10)
--- NOTE | 2018-06-28 07:53 | RAD ---
HISTORY: sob COMPARISONS: December 20, 2015 VIEWS: 1: frontal portable view of the chest at 12:13 AM FINDINGS: LINES AND TUBES: None. CARDIOMEDIASTINAL SILHOUETTE: The cardiomediastinal silhouette is stable. PLEURA: The costophrenic angles are sharp. No pleural abnormalities are noted. LUNG PARENCHYMA: The lungs are clear. ABDOMEN: The upper abdomen is clear. There is no subphrenic gas. BONES AND SOFT TISSUES: No bone or soft tissue abnormalities are noted. IMPRESSION: NO ACTIVE CARDIOPULMONARY DISEASE. R0
[2018-06-28] MEDS ORDERED: Potassium Chlor TAB* 10 MEQ TAB.ER PO ONE (08:46)
[2018-06-28] MEDS: predniSONE TAB* 20 MG PO SCH (09:37)
[2018-06-28] MEDS: Folic Acid TAB* 1 MG PO SCH (09:37)
[2018-06-28] MEDS: Sertraline* 100 MG TAB PO SCH (09:37)
[2018-06-28] MEDS: Multivitamins/Minerals TAB PO SCH (09:38)
[2018-06-28] MEDS: Thiamine TAB* 100 MG TAB PO SCH (09:38)
[2018-06-28] MEDS: Fluticasone NASAL SPRAY 50MCG* 16 gm SPRAY BTL BOTH NARES SCH (09:40)
[2018-06-28] MEDS: Acetaminophen TAB* 325 MG PO PRN ×2 (15:56→23:02)
--- NOTE | 2018-06-29 00:02 | PN ---
Subjective Interval History: patient states that her breathing has improved some, but continues to feel short of breath. Denies chest pain. does report some blood from the rectum when wiping this afternoon, states only on toilet tissue. states stools were brown. denies abd pain. n/v/d. Family History: Unchanged from Admission Social History: Unchanged from Admission Past Medical History: Unchanged from Admission Objective Active Medications: Acetaminophen (Tylenol Tab*) 650 mg PO Q4H PRN PRN Reason: FEVER/PAIN Last Admin: 06/28/18 23:02 Dose: 650 mg Al Hydrox/Mg Hydrox/Simethicone (Maalox Plus*) 30 ml PO Q6H PRN PRN Reason: INDIGESTION Last Admin: 06/28/18 21:48 Dose: 30 ml Albuterol (Ventolin 2.5 Mg/3 Ml Neb.Lexii*) 2.5 mg INH Q2H PRN PRN Reason: SOB/WHEEZING Albuterol/Ipratropium (Duoneb (Albuterol 2.5 Mg/Ipratropium 0.5 Mg)) 1 neb INH Q4H PRN PRN Reason: SOB/WHEEZING Benzonatate (Tessalon Cap*) 100 mg PO BID PRN PRN Reason: COUGH Fluticasone Propionate (Flonase Nasal [place] 50mcg*) 2 spray BOTH NARES DAILY [facility] Last Admin: 06/28/18 09:40 Dose: 2 spray Folic Acid (Folvite Tab*) 1 mg PO DAILY [facility] Last Admin: 06/28/18 09:37 Dose: 1 mg Heparin Sodium (Porcine) (Heparin Vial(*)) 5,000 units SUBCUT Q8HR [facility] Last Admin: 06/28/18 21:49 Dose: 5,000 units Lorazepam (Ativan Tab(*)) 0 - 6 mg PO .PER WA PROTOCOL [facility]; Protocol Mometasone Furoate (Asmanex 220 Mcg Mdi *) 2 puff INH BID [facility]; Protocol Last Admin: 06/28/18 20:10 Dose: 2 puff Multivitamins/Minerals (Theragran/Minerals Tab*) 1 tab PO DAILY [facility] Last Admin: 06/28/18 09:38 Dose: 1 tab Ondansetron HCl (Zofran Inj*) 4 mg IV Q4H PRN PRN Reason: NAUSEA/VOMITING Prednisone (Deltasone Tab*) 40 mg PO DAILY [facility] Last Admin: 06/28/18 09:37 Dose: 40 mg Sertraline HCl (Zoloft*) 100 mg PO DAILY [facility] Last Admin: 06/28/18 09:37 Dose: 100 mg Thiamine HCl (Vitamin B-1 Tab*) 100 mg PO DAILY [facility] Last Admin: 06/28/18 09:38 Dose: 100 mg Vital Signs - 8 hr 06/28/18 06/28/18 06/28/18 16:59 17:16 19:18 Temperature 97.4 F 98.2 F Pulse Rate 89 75 Respiratory 20 18 16 Rate Blood Pressure 163/90 155/87 (mmHg) O2 Sat by Pulse 97 99 Oximetry 06/28/18 06/28/18 06/28/18 20:12 20:13 21:13 Temperature 97.5 F Pulse Rate 73 73 82 Respiratory 16 16 20 Rate Blood Pressure 159/77 (mmHg) O2 Sat by Pulse 98 98 99 Oximetry Oxygen Devices in Use Now: Nasal Cannula Appearance: appers comfotable resting in bed , no acute distress Eyes: No Scleral Icterus Ears/Nose/Mouth/Throat: Clear Oropharnyx, Mucous Membranes Moist Neck: NL Appearance and Movements; NL JVP, Trachea Midline Respiratory: Symmetrical Chest Expansion and Respiratory Effort, - - diminshed with exp wheezes bilat Cardiovascular: NL Sounds; No Murmurs; No JVD, No Edema Abdominal: NL Sounds; No Tenderness; No Distention Extremities: No Edema, No Clubbing, Cyanosis Skin: No Rash or Ulcers, No Nodules or Sclerosis Neurological: Alert and Oriented x 3 Nutrition: Taking PO's Result Diagrams: 06/28/18 00:11 06/28/18 02:05 Additional Lab and Data: Lab Results 06/28/18 06/28/18 06/28/18 Range/Units 00:10 00:11 00:11 WBC 6.7 (3.5-10.8) 10^3/ul RBC 4.36 (4.00-5.40) 10^6/ul Hgb 13.8 (12.0-16.0) g/dl Hct 40 (35-47) % MCV 91 (80-97) fL MCH 32 H (27-31) pg MCHC 35 (31-36) g/dl RDW 13 (10.5-15) % Plt Count 195 (150-450) 10^3/ul MPV 7.7 (7.4-10.4) um3 Neut % (Auto) 51.2 (38-83) % Lymph % (Auto) 38.3 (25-47) % [place] % (Auto) 6.2 (0-7) % Eos % (Auto) 3.8 (0-6) % Baso % (Auto) 0.5 (0-2) % Absolute Neuts (auto) 3.4 (1.5-7.7) 10^3/ul Absolute Lymphs (auto) 2.6 (1.0-4.8) 10^3/ul Absolute Monos (auto) 0.4 (0-0.8) 10^3/ul Absolute Eos (auto) 0.3 (0-0.6) 10^3/ul Absolute Basos (auto) 0 (0-0.2) 10^3/ul Absolute Nucleated RBC 0 10^3/ul Nucleated RBC % 0.2 ABG pH 7.31 L (7.35-7.45) ABG pCO2 45 (35-45) mmHg ABG pO2 318 H (80-100) mmHg ABG HCO3 22.0 (19-31) mmol/L ABG O2 Saturation 99.4 H (95-98) % ABG Base Excess -3.7 L (-2.0-2.0) Sodium 144 (135-145) mmol/L Potassium Pending Chloride 111 (101-111) mmol/L Carbon Dioxide 21 L (22-32) mmol/L Anion Gap Pending BUN 17 (6-24) mg/dL Creatinine 0.66 (0.51-0.95) mg/dL Est GFR ( Amer) 110.5 (>60) Est GFR (Non-Af Amer) 91.4 (>60) BUN/Creatinine Ratio 25.8 H (8-20) Glucose 103 H (70-100) mg/dL Lactic Acid (0.5-2.0) mmol/L Calcium 9.3 (8.6-10.3) mg/dL Total Bilirubin 0.30 (0.2-1.0) mg/dL AST Pending ALT 17 (7-52) U/L Alkaline Phosphatase 69 (34-104) U/L Troponin I 0.00 (<0.04) ng/mL Total Protein 7.0 (6.4-8.9) g/dL Albumin 4.4 (3.2-5.2) g/dL Globulin 2.6 (2-4) g/dL Albumin/Globulin Ratio 1.7 (1-3) 06/28/18 Range/Units 00:12 WBC (3.5-10.8) 10^3/ul RBC (4.00-5.40) 10^6/ul Hgb (12.0-16.0) g/dl Hct (35-47) % MCV (80-97) fL MCH (27-31) pg MCHC (31-36) g/dl RDW (10.5-15) % Plt Count (150-450) 10^3/ul MPV (7.4-10.4) um3 Neut % (Auto) (38-83) % Lymph % (Auto) (25-47) % [place] % (Auto) (0-7) % Eos % (Auto) (0-6) % Baso % (Auto) (0-2) % Absolute Neuts (auto) (1.5-7.7) 10^3/ul Absolute Lymphs (auto) (1.0-4.8) 10^3/ul Absolute Monos (auto) (0-0.8) 10^3/ul Absolute Eos (auto) (0-0.6) 10^3/ul Absolute Basos (auto) (0-0.2) 10^3/ul Absolute Nucleated RBC 10^3/ul Nucleated RBC % ABG pH (7.35-7.45) ABG pCO2 (35-45) mmHg ABG pO2 (80-100) mmHg ABG HCO3 (19-31) mmol/L ABG O2 Saturation (95-98) % ABG Base Excess (-2.0-2.0) Sodium (135-145) mmol/L Potassium Chloride (101-111) mmol/L Carbon Dioxide (22-32) mmol/L Anion Gap BUN (6-24) mg/dL Creatinine (0.51-0.95) mg/dL Est GFR ( Amer) (>60) Est GFR (Non-Af Amer) (>60) BUN/Creatinine Ratio (8-20) Glucose (70-100) mg/dL Lactic Acid 1.9 (0.5-2.0) mmol/L Calcium (8.6-10.3) mg/dL Total Bilirubin (0.2-1.0) mg/dL AST ALT (7-52) U/L Alkaline Phosphatase (34-104) U/L Troponin I (<0.04) ng/mL Total Protein (6.4-8.9) g/dL Albumin (3.2-5.2) g/dL Globulin (2-4) g/dL Albumin/Globulin Ratio (1-3) Assess/Plan/Problems-Billing Assessment: Ms. Peters is a 58 y.o female with a pmhx significant for TBI and Asthma who presented to the emergency room for syncopal episode and shortness of breath. Patient reports that she usually has syncopal episodes with her asthma attacks. - Patient Problems (1) Shortness of breath Current Visit: Yes Status: Acute Code(s): R06.02 - SHORTNESS OF BREATH SNOMED Code(s): 491856225 Comment: - suspect this is related to Asthma- states that breathing is better today - will continue breathing tx and prednisone - patient remains afebrile - o2 as needed - should have outpatient follow up with pulmonology - troponins negative, BNP 26 (2) Syncope Current Visit: Yes Status: Acute Code(s): R55 - SYNCOPE AND COLLAPSE SNOMED Code(s): 336419374 Comment: Troponins negative - patient has a history of syncopal episode with asthma attacks - denies chest pain or dizziness (3) Rectal bleeding Current Visit: Yes Status: Acute Code(s): K62.5 - HEMORRHAGE OF ANUS AND RECTUM SNOMED Code(s): 71582924 Comment: reports blood to toilet tissue when wiping this afternoon- minimal amt per patient stools were brown formed- denies constipation - will trend h/h and monitor stools for any increased bleeding (4) DVT prophylaxis Current Visit: No Status: Acute Code(s): PDL1709 - SNOMED Code(s): 554984352 Comment: HSQ Status and Disposition: possible discharge in the AM
[2018-06-29] MEDS: Heparin VIAL(*) 5000 UNITS/ML VIAL (FIVE THOUSAND) SUBCUT SCH (05:20)
[2018-06-29 06:30] LABS: ABS Basophils 0 10^3/ul (0-0.2); ABS Eosinophils 0 10^3/ul (0-0.6); ABS Lymphocytes 1.5 10^3/ul (1.0-4.8); ABS Monocytes 0.5 10^3/ul (0-0.8); ABS Neutrophils 7.9 10^3/ul (1.5-7.7); ABS Nucleated RBC 0 10^3/ul; Eosinophil % 0 % (0-6); Hematocrit 35 % (35-47); Hemoglobin 11.9 g/dl (12.0-16.0); Lymphocyte % 15.3 % (25-47); Mean Corpuscular HGB Conc 34 g/dl (31-36); Mean Corpuscular Hemoglobin 31 pg (27-31); Mean Corpuscular Volume 91 fL (80-97); Mean Platelet Volume 7.9 um3 (7.4-10.4); Nucleated Red Blood Cells % 0; Platelet Count 161 10^3/ul (150-450); Red Blood Count 3.86 10^6/ul (4.00-5.40); Red Cell Distribution Width 13 % (10.5-15); White Blood Count 9.9 10^3/ul (3.5-10.8)
[2018-06-29 06:53] LABS: EGFR Non-African American 125.9 (>60)
[2018-06-29] MEDS: Mometasone 220 MCG MDI INH SCH (08:22)
[2018-06-29] MEDS: Fluticasone NASAL SPRAY 50MCG* 16 gm SPRAY BTL BOTH NARES SCH (09:08)
[2018-06-29] MEDS: predniSONE TAB* 20 MG PO SCH (09:08)
[2018-06-29] MEDS: Folic Acid TAB* 1 MG PO SCH (09:08)
[2018-06-29] MEDS: Thiamine TAB* 100 MG TAB PO SCH (09:08)
[2018-06-29] MEDS: Sertraline* 100 MG TAB PO SCH (09:09)
[2018-06-29] MEDS: Multivitamins/Minerals TAB PO SCH (09:09)
[2018-06-29 12:37] VITALS: BP 166/77
--- NOTE | 2018-06-29 22:28 | DS ---
CC: Dr. Torres * DISCHARGE SUMMARY: DATE OF ADMISSION: DATE OF DISCHARGE: 06/29/18 HISTORY OF PRESENT ILLNESS: This 58-year-old woman presented with shortness of breath. She has had many asthma attacks before. This is not her worst asthma attack. She thinks it may have been related to her being tired and overdoing herself and also having several alcohol or cocktails for the dinner. She had several rounds of azithromycin courses recently. She said she usually is helped by prednisone as well. Dr. Torres recently prescribed Asmanex, although she obtained a prescription, she never started taking it. The patient was given intravenous steroids, nebulized bronchodilators and did very well so I think she was really very close if not at her baseline at the time of discharge. FINAL DIAGNOSES: 1. Asthma. 2. History of traumatic brain injury. DISCHARGE MEDICATIONS: 1. Mometasone 220 mcg 2 puffs twice daily. 2. Prednisone 10 mg taper from 4 to 0 over 4 days. 3. Albuterol 2.5 mg via nebulizer as needed. 4. Sertraline 100 mg daily. 5. Fluticasone nasal spray 2 sprays both nares daily. 6. Psyllium 1 daily. 7. Naproxen 220 mg daily p.r.n. [id number]/[facility] #: [id number] [facility]
== END 2018-06-29 12:40 | disposition home or self-care (01) ==
LOC: ED 23:49 → MEDTELE 06-28 01:58
PROVIDERS: ADMIT Pediatrics; ATTEND Internal Medicine
DX: J45.909 Unspecified asthma, uncomplicated (principal); R06.02 Shortness of breath; Z87.820 Personal history of traumatic brain injury; Z87.891 Personal history of nicotine dependence
CPT/HCPCS: 36415; 71045; 80048; 80053; 80320; 82803; 83605; 83880; 84484; 85025; 85379; 87040; 93005; 94640; 96365; 96366; 96372; 96375; 99283; A9270-GY; G0378; G0480; J1644; J2930; J3411; J3475; J7512

== ENCOUNTER 2019-06-16 15:02 | Emergency (ER) | payer BC ==
--- NOTE | 2019-06-16 15:16 | ED ---
Upper Extremity Pain - HPI Summary HPI Summary: Patient is a 59-year-old female who presents emergency department for right shoulder injury that occurred just prior to arrival. Patient states she tripped in a restaurant and landed directly onto her right shoulder. She states she did strike her head but denies loss of consciousness or headache. Patient is not anticoagulated. Symptoms are mild in severity. Moving shoulder makes symptoms worse. Nothing makes it better. - History of Current Complaint Chief Complaint: EDExtremityUpper Stated Complaint: RT SHOULDER INJ FROM FALL Time Seen by Provider: 06/16/19 15:15 Hx Obtained From: Patient - Allergies/Home Medications Allergies/Adverse Reactions: Allergies Allergy/AdvReac Type Severity Reaction Status Date / Time chocolate flavor Allergy Severe Difficulty Verified 06/16/19 15:10 Breathing cocoa Allergy Severe Difficulty Verified 06/16/19 15:10 Breathing soy Allergy Severe Difficulty Verified 06/16/19 15:10 Breathing theophylline Allergy Severe Difficulty Verified 06/16/19 15:10 Breathing Sulfa (Sulfonamide Allergy Intermediate Rash And Verified 06/16/19 15:10 Antibiotics) Itching onion Allergy Mild Difficulty Verified 06/16/19 15:10 Breathing shellfish derived Allergy Difficulty Verified 06/16/19 15:10 Breathing orange Allergy Severe Difficulty Uncoded 03/09/18 10:46 Breathing PMH/Surg Hx/FS Hx/Imm Hx Previously Healthy: Yes Endocrine/Hematology History: Denies: Hx Diabetes, Hx Thyroid Disease Cardiovascular History: Denies: Hx Hypertension, Hx Pacemaker/ICD Respiratory History: Reports: Hx Asthma, Other Respiratory Problems/Disorders - Hx pneumonia Denies: Hx Chronic Obstructive Pulmonary Disease (COPD) GI History: Reports: Other GI Disorders - portion of small bowel removed Dec 2012 Denies: Hx Ulcer History: Denies: Hx Dialysis, Hx Renal Disease Musculoskeletal History: Reports: Other Musculoskeletal History - Tib/fib R ankle fx 1990, felecia inserted, head injury 1974 Sensory History: Denies: Hx Contacts or Glasses, Hx Hearing Aid Opthamlomology History: Denies: Hx Contacts or Glasses Neurological History: Reports: Hx Migraine, Other Neuro Impairments/Disorders - Hx head injury 1974, followed by Dr. 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 2 D&C. WISDOM TEETH Infectious Disease History: No Infectious Disease History: Denies: Hx Hepatitis, Hx Human Immunodeficiency Virus (HIV), Traveled Outside the [place] in Last 30 Days - Family History Known Family History: Positive: Diabetes, Non-Contributory Negative: Respiratory Disease, Seizure Disorder, Blood Disorder - Social History Occupation: Employed Full-time Lives: With Family Alcohol Use: Daily Alcohol Amount: few glasses of wine daily Substance Use Type: Reports: None Smoking Status (MU): Former Smoker Review of Systems Cardiovascular: Negative Respiratory: Negative Positive: Other - right shoulder pain Skin: Negative Neurological: Negative Negative: Headache, Weakness, Paresthesia, Numbness All Other Systems Reviewed And Are Negative: Yes Physical Exam Triage Information Reviewed: Yes Vital Signs On Initial Exam: Initial Vitals Temp Pulse Resp BP Pulse Ox 99.6 F 98 16 123/83 95 06/16/19 15:03 06/16/19 15:03 06/16/19 15:03 06/16/19 15:03 06/16/19 15:03 Vital Signs Reviewed: Yes Appearance: Positive: Well-Appearing - Pt. sitting on chair in right shoulder in a homemade sling. Appears uncomfortable but nontoxic. present. Skin: Positive: Warm, Dry Head/Face: Positive: Normal Head/Face Inspection Eyes: Positive: Normal, EOMI Neck: Positive: Supple Musculoskeletal: Positive: Other - Pain on palpation to right humeral head. Good radial pulse. No distal injuries. No breaks in the skin. Neurological: Positive: Normal, CN Intact II-III Psychiatric: Positive: Normal, Affect/Mood Appropriate Procedures - Splinting Right Upper Extremity Pre-Made Type: shoulder sling Pre-Proc Neuro Vasc Exam: normal Post-Proc Neuro Vasc Exam: normal Diagnostics - Vital Signs Vital Signs Temp Pulse Resp BP Pulse Ox 06/16/19 15:03 99.6 F 98 16 123/83 95 - Laboratory Lab Statement: Any lab studies that have been ordered have been reviewed, and results considered in the medical decision making process. Course/Dx - Course Course Of Treatment: Pt. presenting with isolated shoulder injury. Given a dose of pain meds. Xray per radiology: IMPRESSION: Comminuted fracture neck of the humerus which is mildly comminuted and may involve the greater tuberosity. Pt. placed in shouler sling. Advised to call ortho. on Tuesday for a close f.u apt. Rx for lortab given. [employer] reviewed. To ice intermittently. Pt. understands and agrees with plan. - Diagnoses Differential Diagnosis/HQI/PQRI: Positive: Contusion, Fracture (Closed), Strain , Sprain Provider Diagnoses: Humeral fracture Discharge - Sign-Out/Discharge Documenting (check all that apply): Patient Departure Patient Received Moderate/Deep Sedation with Procedure: No - Discharge Plan Condition: Good Disposition: HOME Prescriptions: Hydrocodone/Acetaminophen [Hydrocodone/Acetaminophen 5-325 mg] 1 tab PO Q6H #12 tab MDD 4 Patient Education Materials: Arm Fracture in Adults (ED) Referrals: Ravindra Strong MD [Medical Doctor] - Feng Cid MD [Primary Care Provider] - Additional Instructions: Call the orthopedic clinic Tuesday for morning for an appointment as soon as possible Pain medication as directed Ice intermittently Wear sling Return to ER if symptoms change or worsen - Billing Disposition and Condition Condition: GOOD Disposition: Home
[2019-06-16] MEDS ORDERED: HYDROcodone/ACETAMIN 5-325 MG* 1 TAB PO ONE (15:42)
[2019-06-16 16:50] VITALS: BP 129/81
== END 2019-06-16 16:48 | disposition home or self-care (01) ==
LOC: ED 15:02
DX: S42.211A Unspecified displaced fracture of surgical neck of right humerus, initial encounter for closed fracture (principal); W01.0XXA Fall on same level from slipping, tripping and stumbling without subsequent striking against object, initial encounter; Y92.9 Unspecified place or not applicable; Z87.891 Personal history of nicotine dependence
CPT/HCPCS: 99282